=== PATIENT | female | born 1965 | race African-American/Black ===

== ENCOUNTER 2017-11-06 18:35 | Emergency (ER) | payer MEDICAID, SELFPAY ==
--- NOTE | 2017-11-06 18:35 | DT_ITS ---
This patient was seen during an EMR downtime October 31, 2017 - November 07, 2017. This patient may have a combination of paper and electronic documentation or all paper documentation. All documentation is viewable within the e-chart portion of [facility] for each patient visit.
--- NOTE | 2017-11-06 18:45 | RAD_ITS ---
STUDY: X-RAY CHEST REASON FOR EXAM: Female, 52 years old. Shortness of breath TECHNIQUE: Single AP portable view of the chest. COMPARISON: None. FINDINGS: The lungs are clear and expanded. There is no demonstrated pleural abnormality. There is borderline cardiomegaly. Normal mediastinum and moo. Normal visualized pulmonary arteries. Normal visualized aortic arch and descending thoracic aorta. Normal visualized thoracic spine. Normal visualized ribs, clavicles, and shoulders. There is no demonstrated abnormality of the visualized soft tissue structures of the upper abdomen. RAD/Chest 1 View (Portable) IMPRESSION: Borderline heart size. No acute cardiopulmonary disease process is seen. Electronically Signed: Omar Mcconnell MD at 19:04 EDT , Service support ,
[2017-11-08 07:42] LABS: Anion Gap 4 (5-15); BUN 10 mg/dL (7-18); BUN/Creat Ratio 9.3 RATIO (10-20); Calcium,Total 8.5 mg/dL (8.5-10.1); Chloride 107 mmol/L (98-107); Creatinine, Serum 1.07 mg/dL (0.55-1.02); EST Glomerular Filtration Rate 57 mL/min (>60); Est Glom Filt Rate - Afr Amer 69 mL/min (>60); Glucose 86 mg/dL (74-106); Potassium 4.4 mmol/L (3.5-5.1); Sodium Level 141 mmol/L (136-145)
[2017-11-08 10:20] LABS: Hematocrit 40.1 % (37-47); Hemoglobin 13.1 g/dl (12.0-15.0); Red Blood Count 4.27 M/mm3 (4.2-5.4); White Blood Count 4.5 K/mm3 (4.4-11.0)
[2017-11-08 10:21] LABS: Absolute Lymphocyte Count 2.07 X10^3/ul (0.83-4.51); Basophil# 0.03 X10^3/uL; Basophil% 0.7 % (0-1); Eosinophil# 0.17 X10^3/uL; Eosinophils% 3.8 % (0-5); Lymphocyte # 2.07 X10^3/ul (4.0); Lymphocyte % 45.9 % (19-41); Mean Corp Hgb Conc 32.7 g/gl (32-36); Mean Corpuscular Hgb 30.7 pg (27.0-32.0); Mean Corpuscular Volume 93.9 fL (81-99); Mean Platelet Vol. 9.8 fl (6.2-12.0); Monocyte# 0.29 X10^3/uL; Monocyte% 6.4 % (0-10); Neutrophil # 1.95 X10^3/uL (2.7-7.7); Neutrophil % 43.2 % (47-70); POSITIVE COUNT NO; POSITIVE DIFFERENTIAL NO; POSITIVE MORPHOLOGY NO; Platelet Count 226 K/mm3 (150-450); RBC Distribution Width CV 13.7 % (11.6-14.6); RBC Distribution Width SD 46.8 fl (35.1-43.9)
[2017-11-08 11:52] LABS: Bacteria 0 SEEN /hpf (None Seen); Mucous, Urine 0 SEEN /hpf (<or=2+)
[2017-11-08 12:28] LABS: Color, Urine Yellow (Yellow); Glucose, Dipstick NEGATIVE (Normal); Ketone-Dipstick Negative (Negative); Leukocyte Esterase-Dipstick 25 /ul (Negative); Nitrite-Dipstick Negative (Negative); Occult Blood-Urine 25 /ul (Negative); Protein-Dipstick Negative (Negative); Red Blood Cells-Urine 0-5 SEEN /hpf (0-5); Squamous Epithelial Cells - UA 5-10 SEEN /hpf (5-10); Urine Bilirubin Dipstick Negative (Negative); Urine Clarity Clear (Clear); Urine Urobilinogen Normal (Normal); White Blood Cells 0-5 SEEN /hpf (0-5)
[2017-11-08 13:38] LABS: D-Dimer Quantitative (DVT/PE) 0.31 FEU/ug/m (0.27-0.49)
== END 2017-11-06 20:38 | disposition home or self-care (01) ==
PROVIDERS: Emergency Provider Emergency Medicine; Family Provider Internal Medicine; PCP Internal Medicine
DX: M54.9 Dorsalgia, unspecified (principal); G89.29 Other chronic pain; R30.0 Dysuria; R35.0 Frequency of micturition; R06.00 Dyspnea, unspecified; G25.81 Restless legs syndrome; F32.9 Major depressive disorder, single episode, unspecified; F17.200 Nicotine dependence, unspecified, uncomplicated; Z79.899 Other long term (current) drug therapy
CPT/HCPCS: 71045; 80048; 81001; 85025; 85379; 96361; 96374; 96375; 99283; J7030; A4216; J2405

== ENCOUNTER 2019-12-22 16:21 | Emergency (ER) | payer MEDICAID, SELFPAY ==
[2019-12-22 16:23] VITALS: BP 134/74; PULSE 80; RESP 18; TEMP 36.3; O2SAT 98; BMI 31.3
--- NOTE | 2019-12-22 16:35 | RAD_ITS ---
STUDY: X-RAY - RIGHT HAND REASON FOR EXAM: Female, 54 years old. FALL ONTO HAND, PT HAS HISTORY OF 5TH DIGIT DEFORMITY- IT IS CONTRACTED- PAIN AND SWELLING TO 5TH DIGIT, HEARD and quot;POP and quot; TECHNIQUE: 3 view(s) of the hand. COMPARISON: None. FINDINGS: Normal radiocarpal articulation. Normal distal radioulnar joint. Normal visualized carpal bones. Normal carpal articulations Normal carpometacarpal articulation of the thumb. Normal second through fifth carpometacarpal joints. Normal metacarpi. Normal metacarpophalangeal joint of the thumb. Normal interphalangeal joint of the thumb. Normal proximal and distal phalanges of the thumb. Normal metacarpophalangeal joints of the second through fifth fingers. Normal proximal and distal interphalangeal joints of the second through fifth fingers. Age-indeterminate fracture of the base of the fifth middle phalanx. Flexion deformity of the right fifth digit. The soft tissue structures are unremarkable. RAD/Hand Min 3 Views IMPRESSION: Age-indeterminate fracture of the base of the fifth middle phalanx. Electronically Signed: Ritchie Muir MD at 17:08 EDT Tel , Service support ,
--- NOTE | 2019-12-22 16:56 | ED.VIS.UPPEX ---
History of Present Illness Informant: Patient Occurred: Today Mechanism/Context: Fall Onset: Today Context: Sudden Onset Timing: Continuous Quality of Pain: Throbbing Location: right 5th finger Current Severity: Severe Maximum Severity: Severe Worsened by: movement Relieved by: rest Associated Symptoms: Negative for: Parasthesia, Weakness, Loss of Funtion Narrative: 54 year old female presents with right 5th finger injury. she fell just prior to arrival. she has a deformity to her right 5th finger chronically but it is worse after the fall. no numbness, tingling, or weakness. no head injury or loss of consciousness. no other injuries. Tetanus Immunization: Unknown Prior similar symptoms: No Recent Illness/Hospitalization: No <Aj Castro - Last Filed: 12/22/19 18:15> <Antonio Sutton - Last Filed: 12/22/19 22:59> Chief Complaint: Upper Extremity Injury Past Medical History Prior records reviewed: Yes Past Medical History: None Surgical History: no surgical history Lives: With Family Smoking Status: Current every day smoker Alcohol: Occasional Drugs: None <Aj Castro - Last Filed: 12/22/19 18:15> <Antonio Sutton - Last Filed: 12/22/19 22:59> - Allergies and Home Meds Allergies/Adverse Reactions: Allergies codeine Allergy (Verified 12/22/19 16:25) Hives Penicillins [PCN] Allergy (Verified 12/22/19 16:25) Hives Primary Care Physician: Salvador Howell MD [STAFF PHYSICIAN] - As soon as possible Review of Systems General: Denies: Chills, Fever, Sweats Eyes: Denies: Visual changes - bilaterally, Diplopia ENT: Denies: Rhinorrhea, Sore throat Cardiovascular: Denies: Chest pain, Palpitations Respiratory: Denies: Dyspnea, Cough, Dyspnea on exertion Gastrointestinal: Denies: Abdominal pain, Nausea, Vomiting, Diarrhea, Melena, Hematochezia Genitourinary: Denies: Dysuria, Hematuria, Frequency Musculoskeletal: Reports: Swelling, Extremity Pain. Denies: Back pain Skin: Reports: Abrasions. Denies: Rash, Abscess, Wounds Neurological: Denies: Headache, Weakness, Numbness <Aj Castro - Last Filed: 12/22/19 18:15> Physical Exam Vital Signs/Narrative: Vital Signs Temp Pulse Resp BP Pulse Ox 07/25/20 16:23 97.3 F L 80 18 134/74 H 98 Inital Vital Signs reviewed: Yes Right Hand: Deformity, - - deformity of right 5th finger at PIP joint. limited ROM at MCP and DIP due to pain. abrasion in web space between 4th and 5th fingers. no laceration. normal capillary refill and sensation. limited ROM at General: Well nourished, Well developed Head: Normocephalic, Atraumatic Eyes: Perrl, EOMI ENT: No Trauma, Moist Mucous Membranes Neck: Nontender, Full ROM Cardiovascular: Regular rate, Regular rhythm, No murmurs Respiratory: No distress, CTA bilaterally, Chest nontender Abdomen: Soft, Nontender, Nondistended, Normal bowel sounds Back: Nontender Skin: Normal color, No rash, Trauma Neurological: Alert, Oriented x3, Cranial nerves II-XII grossly intact, Normal Strength, Normal Sensation Psychological: Normal affect <Aj Castro - Last Filed: 12/22/19 18:15> Diagnostic/Tx/Re-eval - Medical Decision Making X-ray was obtained through triage that shows a fracture at the base of the fifth middle phalanx. The patient has a chronic deformity at her PIP joint as well. I did perform a digital block evaluate the patient's finger I attempted to straighten the distal phalanx as much as possible as it did appear to be out of place on physical exam and there was some improvement in its alignment. Patient tolerated well. Patient declines repeat x-rays because it is actually her son's wedding day and she would like to be discharged. I explained to her that due to her chronic deformity we would be unable to place her in a finger splint however we did apply dressing and refer the patient to orthopedics for follow-up. She declined a prescription for analgesia. She will use Tylenol and Motrin. She was agreeable with our plan of care and all of her questions were answered. Impressions Hand X-Ray 12/22/19 16:35 IMPRESSION: Age-indeterminate fracture of the base of the fifth middle phalanx. Electronically Signed: Ritchie Muir MD at 17:08 EDT Tel , Service support , 12/22/19 16:35 Hand Min 3 Views [RAD] Stat <Aj Castro - Last Filed: 12/22/19 18:15> - Medical Decision Making Patient was seen with me. I did a [id number] examination with the patient. Patient presents with injury to her right fifth finger that occurred today. Patient states she fell and injured her finger. Patient denies any paresthesias or weakness. Patient denies any head injury or loss of consciousness. Patient denies any other injuries. Vital signs are stable. Patient is afebrile. Patient is in no acute distress. Musculoskeletal exam reveals tenderness over the PIP and DIP joints of the right fifth finger. There is a chronic deformity of the PIP joint. There is no bony crepitance or step-off. Sensation was intact to light touch in all digits. Capillary refill is less than 2 seconds in all digits. X-rays of the right hand were obtained. There is a fracture at the base of the middle phalanx of uncertain age. The finger was anesthetized with 1% lidocaine via digital block. We attempted to reduce the fracture with some improvement of her alignment. A dressing was applied. Patient was instructed to follow-up with orthopedics. Patient understood and was agreeable with the plan. All questions were answered. <Antonio Sutton - Last Filed: 12/22/19 22:59> ED Disposition <Aj Castro - Last Filed: 12/22/19 18:15> <Antonio Sutton - Last Filed: 12/22/19 22:59> - Plan for ED Patient: Disposition: Home or Assisted Living Diagnosis: fifth middle phalanx fracture right hand Instructions: ED FINGER FRACTURE Closed Referrals: Salvador Howell MD [STAFF PHYSICIAN] - As soon as possible
[2019-12-22 18:05] VITALS: BP 136/79; PULSE 81; RESP 16; O2SAT 99
== END 2019-12-22 18:05 | disposition home or self-care (01) ==
PROVIDERS: Emergency Provider Physician Assistant Medical; PCP Internal Medicine
DX: S62.626A Displaced fracture of middle phalanx of right little finger, initial encounter for closed fracture (principal); S60.511A Abrasion of right hand, initial encounter; W19.XXXA Unspecified fall, initial encounter; Y93.9 Activity, unspecified; Y92.9 Unspecified place or not applicable
CPT/HCPCS: 73130; 99282

== ENCOUNTER 2022-07-27 08:30 | Outpatient (RCR) | payer OTHER, MEDICAID, SELFPAY ==
--- NOTE | 2022-06-10 10:57 | HP.PTEVAL ---
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 Date of Evaluation: 06/10/22 Physical Therapist: Mani Montenegro - Visit Plan Frequency: 2-3x /Week Duration: 6 Weeks Plan: Continue to focus on improving left wrist ROM and left UE strength. Use manual therapy and modalities as needed for pain control. - Subjective Pt. is a 56 y.o. female who was pulling a pallet and fell backwards and landed on her left wrist on 11-26-20. Pt. went to the ER which showed left radius fracture. She eventually had left wrist ORIF surgery. She then had two more surgeries after this to have pins removed and then also a bone removed with her last surgery being in October 2021. Her PLOF includes no history of left wrist problems. She is right handed. Pt. has numbness in the palm and her left thumb. She has difficulty with putting her hair up, reaching behind her back, buttoning her shirts, gripping things, pushing/pulling, tying her shoes, lifting things, bowling, housework, yard work, and work activity. Pt. is currently not back to work and is on Worker's Comp. 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 Her goal with physical therapy is to try and get back as much function of her wrist that she can. She has had previous physical therapy in [place] after her surgery with her last therapy being in March. She is currently seeing pain management. Pt. rates the left wrist pain at 7/10 currently, at worst 10/10, at best 5/10 and describes the pain as throbbing and has a pain patch and Flexural. Pt. hobbies include bowling and spending time with her grandkids. - Objective Left shoulder AROM flexion [135 degrees], abduction [98 degrees]. Left shoulder strength flexion [3-/5], abduction [3-/5]. Left wrist extension [8 degrees], flexion [18 degrees], RD [8 degrees], UD [10 degrees], Supination [70 degrees], Pronation [88 degrees]. Left wrist strength extension [2-/5], flexion [2-/5], RD [2-/5], UD [2-/5], supination [2+/5], Pronation [3+/5]. Right shoulder AROM flexion [170 degrees], abduction [170 degrees]. Right shoulder strength flexion 5/5, abduction 5/5. Right wrist extension [65 degrees], flexion [75 degrees], RD [20 degrees], UD [45 degrees], Supination [90 degrees], Pronation [90 degrees]. Right wrist strength extension [5/5], flexion [5/5], RD [5/5], UD [5/5], Supination [5/5], Pronation [5/5]. Left wire harness design engineer strength- 69 lbs, 60 lbs, 58 lbs. Right wire harness design engineer strength- 9 lbs, 9 lbs, 11 lbs - Balance/Special Test Scores Quick DASH Score: 86.3625 - Goals Goal 1:: Pt. will be able to improve left wrist AROM by at least 10 degrees for all motions in order to better complete ADL's. Goal Time Frame: 6-8 Weeks Goal 2:: Pt. will improve wire harness design engineer strength by at least 15 lbs on left in order to improve gripping things. Goal Time Frame: 6-8 Weeks Goal 3:: Pt. will be able to button her shirt and put her shoes on with no assist or difficulty. Goal Time Frame: 6-8 Weeks Goal 4:: Pt. will be able to lift at least 15# with left wrist pain < 5/10. Goal Time Frame: 6-8 Weeks Goal 5:: Pt. will rate left wrist pain at worst at 5/10 with ADL's. Goal Time Frame: 6-8 Weeks Goal 6:: Pt. will improve Quick Dash score <70% disability in order to improve ADL's. Goal Time Frame: 6-8 Weeks - Rehabilitation Potential Physical Therapy Diagnosis: Decreased left UE ROM, strength, and pain Rehabilitation Potential: Fair - Anticipated Interventions Patient/Client Instruction: Educate patient on: Condition, Plan of Care For the Purpose of:: To decrease pain, To increase ROM, To improve ability to perform ADL's, To improve performance and independence with ADL's, To improve ability of physical actions for home/community/work/leisure, To increase flexibility/ROM, To improve tolerance to ADL's Therapeutic Exercise to Include: Strength training, Passive ROM, Active ROM Comment: Focus on improving left wrist ROM and UE strengthening. For the Purpose of:: To decrease pain, To increase ROM, To improve ability to perform ADL's, To increase flexibility/ROM, To assume or resume ADL's, To improve tolerance to ADL's Functional Training to Include: ADL Training, Functional work training For the Purpose of:: To decrease pain, To increase ROM, To improve ability to perform ADL's, To improve performance and independence with ADL's, To increase flexibility/ROM, To assume or resume ADL's, To improve tolerance to ADL's Manual Therapy Techniques to Include: Scar massage, Passive ROM, Soft tissue mobilization For the Purpose of:: To decrease pain, To decrease swelling/inflammation, To increase ROM, To improve ability to perform ADL's, To improve performance and independence with ADL's, To increase flexibility/ROM, To assume or resume ADL's, To improve tolerance to ADL's Cryotherapy (ice pack, ice massage): Yes Thermo therapy (hot pack): Yes For the Purpose of:: To decrease pain, To decrease swelling/inflammation, To increase ROM, To improve ability to perform ADL's, To improve performance and independence with ADL's, To increase flexibility/ROM, To improve tolerance to ADL's Thank you for the opportunity to evaluate your patient. For Medicare and Medicare HMO plans, please review the plan of care and approve it. It will need to be FAXED BACK to us at [phone] for Medicare purposes. For Medicare only, by signing this I certify the plan of care. Please let me know if there are questions or concerns regarding this plan of care. Physician Signature: Date:
--- NOTE | 2022-07-06 11:15 | HP.PTREVAL ---
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 Please see the progress note below for an update on the physical therapy plan of care! Subjective: Pt. reports overall doing okay. She is still having 7/10 pain at rest. She is wearing her splint at night which has been helpful. She reports no much change in her ROM and is pretty painful with attempts to stretch further. Pt. is using medication as prescribed. Objective/Function: Valve Inserter strength- R 60#, L 11#. Pt. is still having a lot of trouble with fine motor skills, unable to button, zip, ext. ROM: ext 4deg, flexion 8deg. Minimal UD/RD, supination: 100deg. all movements limited secondary to pain and stiffness. Susana is still having higher levels of pain. I talked to her about slowly increasing activities able to test progressions. At this point in time we need to progress into more work conditioning exercises. I would like to progress to gym movements. She was very fatigued today, so I am going to have to wean her into progression of conditioning exercises. She is limited with her wrist, but I would like to strength her whole arm and increase overall endurance. Plan Plan: Start with work condition x3 days per week starting with 1 hour for 1 week, 2 hours for the next and building to 3 hours at the end. Use exercise log and progress as tolerated. Working on both UE and LEs to progress potentially back to work activities. Balance/Gait/Functional tests - Balance/Special Test Scores Quick DASH Score: 86.3625 Goals Goal 1:: Pt. will be able to improve left wrist AROM by at least 10 degrees for all motions in order to better complete ADL's. Goal Time Frame: 6-8 Weeks Goal Progress: Progressing Goal 2:: Pt. will improve marketing traffic coordinator strength by at least 15 lbs on left in order to improve gripping things. Goal Time Frame: 6-8 Weeks Goal Progress: Progressing Goal 3:: LTG: Pt. to tolerate working in gym for 2+ hours with decent tolerance and no increase in symptoms over resting pain levels. Goal Time Frame: 6-8 Weeks Goal 4:: Pt. will be able to lift at least 15# with left wrist pain < 5/10. Goal Time Frame: 6-8 Weeks Goal 5:: Pt. will rate left wrist pain at worst at 5/10 with ADL's. Goal Time Frame: 6-8 Weeks Goal Progress: Progressing Goal 6:: Pt. will improve Quick Dash score <70% disability in order to improve ADL's. Goal Time Frame: 6-8 Weeks Anticipated Interventions Patient/Client Instruction: Educate patient on: Condition, Plan of Care For the Purpose of:: To decrease pain, To increase ROM, To improve ability to perform ADL's, To improve performance and independence with ADL's, To improve ability of physical actions for home/community/work/leisure, To increase flexibility/ROM, To improve tolerance to ADL's Therapeutic Exercise to Include: Strength training, Passive ROM, Active ROM Comment: Focus on improving left wrist ROM and UE strengthening. For the Purpose of:: To decrease pain, To increase ROM, To improve ability to perform ADL's, To increase flexibility/ROM, To assume or resume ADL's, To improve tolerance to ADL's Functional Training to Include: ADL Training, Functional work training For the Purpose of:: To decrease pain, To increase ROM, To improve ability to perform ADL's, To improve performance and independence with ADL's, To increase flexibility/ROM, To assume or resume ADL's, To improve tolerance to ADL's Manual Therapy Techniques to Include: Scar massage, Passive ROM, Soft tissue mobilization For the Purpose of:: To decrease pain, To decrease swelling/inflammation, To increase ROM, To improve ability to perform ADL's, To improve performance and independence with ADL's, To increase flexibility/ROM, To assume or resume ADL's, To improve tolerance to ADL's Cryotherapy (ice pack, ice massage): Yes Thermo therapy (hot pack): Yes For the Purpose of:: To decrease pain, To decrease swelling/inflammation, To increase ROM, To improve ability to perform ADL's, To improve performance and independence with ADL's, To increase flexibility/ROM, To improve tolerance to ADL's Please do not hesitate to contact me at [phone] by phone or if you have questions or concerns regarding this new plan of care! Sincerely, Derrell Kelly DPT
--- NOTE | 2022-07-27 11:10 | HP.PTDCSUM_ITS ---
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 Discharge Date: Please see the following information for a summary of their discharge status. Subjective: Pt. reports overall not much improvement. She is tolerating ~1 hour L wrist Pain Intensity (Out of 10): 5 % Improvement: 15 Objective/Function: Pt. has been tolerating ~1 hour of exercise prior to have increased pain and needing to stop. Pt. is usually sweating and pretty sore after doing exercises. She reports requiring ~24 hours to get back to baseline symptoms. She continues to have tremoring of her L wrist with any activities of her LUE. With her work condition exercises she was doing tread mill walking, UE strengthening (as gripping aloud), LE strengthening and progressing T-mill walking. Pt. with any activity became very taxed. She reports having to rest a full day after her sessions. She did have to re schedule some appointments due to this issue. She reports marked swelling in her wrist after doing exercises, taking ~1 day to reduce to baseline. 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 Pt. also has marked stiffness in her L shoulder, including over head and with functional IR and ER motions. I recommended to her to continue with her exercises [facility] focus on LUE ROM, light strengthening, but to also continue with progressive endurance exercises, walking program and bike. Pt. consents. She is to follow up [facility] physician in 2 weeks then have another FCE. Goal 1:: Pt. will be able to improve left wrist AROM by at least 10 degrees for all motions in order to better complete ADL's. Goal Progress: Progressing Goal 2:: Pt. will improve quantitative consultant strength by at least 15 lbs on left in order to improve gripping things. Goal Progress: Not Progressing Goal 3:: LTG: Pt. to tolerate working in gym for 2+ hours with decent tolerance and no increase in symptoms over resting pain levels. Goal Progress: Not Progressing Goal 4:: Pt. will be able to lift at least 15# with left wrist pain < 5/10. Goal Progress: Not Progressing Goal 5:: Pt. will rate left wrist pain at worst at 5/10 with ADL's. Goal Progress: Not Progressing Goal 6:: Pt. will improve Quick Dash score <70% disability in order to improve ADL's. Goal Progress: Not Progressing Plan: PT. to be DC to physician at this point in time. If there are questions or concerns regarding this patient's physical therapy, please feel free to call me at [phone]. Thank you for the referral of this patient. Sincerely, Derrell Kelly, DPT Balance/Gait/Functional tests - Balance/Special Test Scores Quick DASH Score: 86.3629
== END 2022-07-27 14:42 | disposition home or self-care (01) ==
LOC: PT 08:30
PROVIDERS: PCP Internal Medicine; Referring Provider Student in an Organized Health Care Education/Training Program; Visit Provider Student in an Organized Health Care Education/Training Program
DX: M19.132 Post-traumatic osteoarthritis, left wrist (principal); G90.512 Complex regional pain syndrome I of left upper limb; S52.572A Other intraarticular fracture of lower end of left radius, initial encounter for closed fracture
CPT/HCPCS: 97110; 97140; 97162; 97164

== ENCOUNTER 2022-12-31 21:13 | Emergency (ER) | payer MEDICAID, SELFPAY ==
[2022-12-31 21:13] VITALS: BP 121/94; PULSE 100; RESP 18; TEMP 36.3; O2SAT 98; BMI 30.9
--- NOTE | 2022-12-31 22:10 | RAD_ITS ---
STUDY: X-RAY - LUMBAR SPINE REASON FOR EXAM: Female, 57 years old. pain TECHNIQUE: 3 view(s) of the lumbar spine were obtained. COMPARISON: None FINDINGS: Normal lumbar lordosis. Mild dextroscoliosis centered at L2/L3. There is a normal alignment of the vertebrae. Normal vertebral bodies and endplates. Normal disc space heights. Facet hypertrophy in the lower lumbar spine. The soft tissue structures are unremarkable. RAD/Lumbar Spine 2 or 3 Views IMPRESSION: Mild dextroscoliosis with degenerative disc disease. MRI may be useful. Electronically Signed: Artur Greenwood MD at 22:58 EDT ,
[2022-12-31] MEDS: Orphenadrine 60 MG/2 ML Ampul IM (22:40)
[2022-12-31] MEDS: Ketorolac 60 MG/2 ML Vial IM (22:40)
--- NOTE | 2022-12-31 23:11 | ED.VIS.BACK ---
HPI History of Present Illness Chief Complaint: Back Narrative Narrative: Presents with lower back pain. Patient states she has been having back pain in the lower mid back for about 2 days. She states is just aching. No radiation. No distal numbness tingling weakness bowel or bladder dysfunction. No tearing or ripping. No history of significant back pain. She does not know of any injury. It is very much exacerbated by twisting or motion. The triage note says middle back pain but its in the middle of the lower back. It is all mid to lower lumbar. She has not had any recent infections or fevers. No recent antibiotics. No history of cancers weight loss or fevers. PFSH PFSH Medical History no medical history Home Medications desvenlafaxine succinate 100 mg tablet,extended release 24 hr 100 mg PO DAILY 12/22/19 [History Last Taken Unknown] naproxen 500 mg tablet 500 mg PO BID #14 tabs 12/31/22 [Rx Last Taken Unknown] orphenadrine citrate 100 mg tablet,extended release 100 mg PO BID #14 tabs 12/31/22 [Rx Last Taken Unknown] Allergy/AdvReac Type Severity Reaction Status Date / Time codeine Allergy Hives Verified 12/31/22 21:15 Penicillins [PCN] Allergy Hives Verified 12/31/22 21:15 Social History Smoking Status: Current every day smoker tobacco type: cigarettes and cigars ROS ROS ED ROS Narrative A complete review of systems was performed and is negative except as documented in the history of present illness. Some specific details below. Constitutional: No recent fevers or chills. No rigors. Patient has not generally felt ill. No generalized malaise EYE: No discharge, visual complaints, or pain. ENT: No sinus pressure or pain. No nasal discharge. No dental pain. No recent dental infections. CV: No chest pain, pressure or aching. No palpitations or irregular beats. Patient has not been presyncopal or syncopal. Respiratory: No trouble breathing. No cough. No wheezing. No sputum production. No pain with breathing. GI: No abdominal pain. No nausea vomiting diarrhea. No blood in stool. No loss of bowel control. No history of AAA. : No frequency dysuria or hematuria. No incontinence or urinary retention. Musculoskeletal: No recent trauma. No swelling. Please see history of present illness regarding her back pain. Skin: No rash. No diaphoresis. No vesicles. Neuro: No weakness or numbness. No pain radiating down leg past the knee. Her pain does not actually radiate even from the lower back area toward the buttock. No weakness of ambulation. No sensory changes in the extremities. Please see history of present illness also. Endocrine: No polyuria or polydipsia. EXAM Physical Exam Narrative Exam Narrative: CONSTITUTIONAL: Patient is nontoxic in appearance. The patient looks mildly uncomfortable. Work of breathing looks normal. HEENT: No notable trauma. Mucous membranes moist. No sinus tenderness. No sign of dental infection. EYES: No conjunctival injection. No pallor. NECK: No meningismus. No JVD. CARDIOVASCULAR: Regular rate. Regular rhythm. No notable murmur. No JVD. RESPIRATORY: No respiratory distress. Breathing is unlabored. No wheezes. No rhonchi. No rales. No pain with a deep breath. GASTROINTESTINAL: Not distended. Bowel sounds are normal. No tenderness. No guarding. No rebound. No palpable mass. No bruit. Abdomen is totally benign GENITOURINARY: No tenderness over the bladder. No CVA tenderness. MUSCULOSKELETAL: Atraumatic. No peripheral edema. No cord. No tenderness along the deep venous system. No asymmetry. Distal pulses are intact. She has some mild paraspinal tenderness more on the right than the left. She has some mild mid line tenderness. This is all around the L3-4 area. But there are no skin changes. NEUROLOGICAL: Patient is alert and oriented. No focal deficit noted. Normal strength. Patient can stand on toes and heels and do squats Patellar reflex 2+ bilaterally. Achilles reflex 1?2+ bilaterally. SKIN: No noted rashes. No diaphoresis. No vesicles noted. No notable pallor. PSYCHIATRIC: Patient is calm. Mood is appropriate. Const Vital Signs: 12/31/22 21:13 Temperature 97.3 F L Temperature Source Temporal Pulse Rate 100 Respiratory Rate 18 Blood Pressure 121/94 H Blood Pressure Mean 103 Pulse Ox 98 Oxygen Delivery Method Room Air MDM MDM MDM Narrative Medical decision making narrative: Made but interpretation of the patient's three-view x-ray of her lumbar spine shows no acute fracture or significant spondylolisthesis or lytic lesion. Final reading is mild dextroscoliosis with degenerative disc disease. Patient was treated with Toradol and Norflex. She is already on Butrans patch so opiates are not a good choice for her. She understands this. She actually got quite significant improvement with the Toradol and Norflex. She looks more relaxed and comfortable and states that she feels a lot better. We will get her home on similar medications. We discussed returning with worsening pain, fevers, numbness tingling weakness lightheadedness syncope or any other concerns. Radiography Diagnostic Testing: Clinical Impression(s) from Imaging Studies Lumbar Spine X-Ray 12/31/22 22:10 IMPRESSION: Mild dextroscoliosis with degenerative disc disease. MRI may be useful. Electronically Signed: Artur Greenwood MD at 22:58 EDT , Discharge Plan Triage Chief Complaint: Back ED Provider: Crispin Lopez Dx/Rx/DC Orders Clinical Impression: Lumbar back pain Instructions: ED Back Pain (Acute or Chronic) Prescriptions: New naproxen 500 mg tablet 500 mg PO BID Qty: 14 0RF orphenadrine citrate 100 mg tablet extended release 100 mg PO BID Qty: 14 0RF No Action desvenlafaxine succinate 100 MG tablet 100 mg PO DAILY Primary Care Provider: Lisa He Referrals: Lisa He MD [Primary Care Provider] - 3-5 Days Disposition Disposition: Home, Self Care
[2022-12-31 23:24] VITALS: PULSE 82; RESP 18; O2SAT 96
== END 2022-12-31 23:25 | disposition home or self-care (01) ==
PROVIDERS: Emergency Provider Emergency Medicine; PCP Internal Medicine; Visit Provider Emergency Medicine
DX: M54.50 Low back pain, unspecified (principal); F17.210 Nicotine dependence, cigarettes, uncomplicated
CPT/HCPCS: 72100; 96372; 99282